=== PATIENT | female | born 1990 | race African-American/Black ===

== ENCOUNTER 2016-10-01 23:48 | Emergency (ER) | payer MEDICAID ==
[~2016-10-01] VITALS: Ht 170.2 cm; Wt 64.0 kg
[2016-10-02] MEDS ORDERED: SODIUM CHLORIDE 0.9% 1,000 ML IV ONE (01:28)
[2016-10-02] MEDS ORDERED: KETOROLAC 30MG/ML VIAL IV ONE (01:30)
[2016-10-02 01:40] LABS: BASOPHILS % 0.6 % (0.0-2.0); EOSINOPHILS % 0.3 % (0.0-5.0); HEMATOCRIT. 31.7 % (36.0-48.0); LYMPHOCYTES % 25.4 % (20.0-50.0); MEAN CORPUSCULAR HEMOGLOBIN 24.7 pg (28.0-32.0); MEAN CORPUSCULAR VOLUME 77.8 fL (81.0-99.0); MEAN PLATELET VOLUME 7.5 fl (7.4-10.4); MONOCYTES % 14.7 % (2.0-8.0); PLATELET 314 x1000/uL (130-400); RED BLOOD CELL COUNT 4.07 mill/uL (4.2-5.4)
[2016-10-02 01:46] LABS: CHLORIDE 104 mEq/L (98-107)
[2016-10-02 01:51] LABS: CARBON DIOXIDE 28 mEq/L (21-32)
[2016-10-02 02:40] VITALS: BP 103/64
== END 2016-10-02 03:47 | disposition home or self-care (01) ==
LOC: ER 10-02 00:40
DX: J20.9 Acute bronchitis, unspecified (principal); J45.909 Unspecified asthma, uncomplicated; R51 Headache
CPT/HCPCS: 36415; 70450; 71010; 80048; 85025; 93005; 96361; 96374; 99285; J1885; J7030; Z7610

== ENCOUNTER 2020-01-25 15:11 | Emergency (ER) | payer MEDICAID ==
[~2020-01-25] VITALS: Ht 170.2 cm; Wt 71.0 kg
[2020-01-25] MEDS ORDERED: METOCLOPRAMIDE HCL 10MG/2ML VIAL IV ONE (16:45)
[2020-01-25] MEDS ORDERED: DIPHENHYDRAMINE 50MG/ML VIAL IV ONE (16:45)
[2020-01-25] MEDS ORDERED: KETOROLAC 15MG/ML VIAL IV ONE (17:30)
[2020-01-25 18:11] VITALS: BP 116/62
[2020-01-25] MEDS ORDERED: HYDROCODONE/ACETAMINOPHEN 5/325MG TABLET PO ONE (18:15)
== END 2020-01-25 18:09 | disposition home or self-care (01) ==
LOC: ER 15:11
DX: R51 Headache (principal); R42 Dizziness and giddiness; J45.909 Unspecified asthma, uncomplicated
CPT/HCPCS: 81025; 96374; 96375; 99284; J1200; J1885; J2765

== ENCOUNTER 2021-12-30 13:38 | Emergency (ER) | payer MEDICAID ==
[~2021-12-30] VITALS: Ht 170.2 cm; Wt 65.0 kg
[2021-12-30 13:58] VITALS: BP 103/57
[2021-12-30] MEDS ORDERED: NAPR-681 MT (17:02)
== END 2021-12-30 17:30 | disposition home or self-care (01) ==
LOC: ER 13:38
DX: S63.591A Other specified sprain of right wrist, initial encounter (principal); J45.909 Unspecified asthma, uncomplicated; W01.0XXA Fall on same level from slipping, tripping and stumbling without subsequent striking against object, initial encounter; Y93.9 Activity, unspecified; Y92.9 Unspecified place or not applicable
CPT/HCPCS: 73110; 99283

== ENCOUNTER 2022-01-02 11:10 | Emergency (ER) | payer MEDICAID ==
[~2022-01-02] VITALS: Ht 167.6 cm; Wt 68.0 kg
[~2022-01-02 11:10] MED LIST: NAPR-681 MT
[2022-01-02 11:22] VITALS: BP 119/86
== END 2022-01-02 12:37 | disposition home or self-care (01) ==
LOC: ER 11:23
DX: M25.531 Pain in right wrist (principal); J45.909 Unspecified asthma, uncomplicated
CPT/HCPCS: 99281; A4565

== ENCOUNTER 2023-04-04 09:38 | Emergency (ER) | payer MEDICAID ==
[~2023-04-04] VITALS: Ht 167.6 cm; Wt 68.0 kg
[2023-04-04 09:55] VITALS: O2SAT 100
[2023-04-04] MEDS ORDERED: KETOROLAC 15MG/ML VIAL IV ONE (10:00)
[2023-04-04 10:24] LABS: BASOPHILS % 1.2 % (0.0-2.0); DIFFERENTIAL COMMENT 0; EOSINOPHILS % 2.7 % (0.0-5.0); HEMATOCRIT. 33.6 % (36.0-48.0); HEMOGLOBIN. 10.4 g/dL (12.0-16.0); LYMPHOCYTES % 35.6 % (20.0-50.0); MEAN CORPUSCULAR HEMOGLOBIN 24.8 pg (28.0-32.0); MEAN CORPUSCULAR VOLUME 80.1 fL (81.0-99.0); MEAN PLATELET VOLUME 7.7 fl (7.4-10.4); MONOCYTES % 7.2 % (2.0-8.0); NEUTROPHILS % 53.3 % (40.0-76.0); PLATELET 345 x1000/uL (130-400); RED CELL DISTRIBUTION WIDTH 17.6 % (11.6-14.6); WHITE BLOOD COUNT 3.5 x1000/uL (4.5-11.0)
[2023-04-04 10:30] LABS: INR 1.1; PROTHROMBIN TIME 11.7 sec (9.6-11.0)
[2023-04-04 10:42] LABS: ALANINE AMINOTRANSFERASE 8 IU/L (10-49); ALBUMIN 4.1 g/dL (3.2-4.8); ASPARTATE AMINOTRANSFERASE 19 IU/L (<34); BILIRUBIN TOTAL 0.5 mg/dL (0.1-1.0); CALCIUM 9.1 mg/dL (8.7-10.4); CARBON DIOXIDE 29 mEq/L (21-32); CHLORIDE 104 mEq/L (98-107); CREATININE 0.7 mg/dL (0.6-1.0); GLUCOSE 92 mg/dL (70-105); POTASSIUM 3.6 mEq/L (3.5-5.1); PROTEIN TOTAL 6.4 g/dL (6.0-8.3); SODIUM 139 mEq/L (136-145)
[2023-04-04 10:51] LABS: HCG SCREEN NEGATIVE
[2023-04-04 10:53] LABS: UREA NITROGEN BLOOD < 5 mg/dL (9-23)
[2023-04-04 15:51] LABS: CLARITY URINE CLEAR (CLEAR); COLOR URINE YELLOW (YELLOW); GLUCOSE URINE NEGATIVE (NEGATIVE); KETONES URINE NEGATIVE (NEGATIVE); OCCULT BLOOD URINE NEGATIVE (NEGATIVE); PROTEIN URINE NEGATIVE (NEGATIVE); SPECIFIC GRAVITY URINE 1.004 (1.005-1.030)
[2023-04-04 15:52] LABS: LEUKOCYTE ESTERASE URINE NEGATIVE (NEGATIVE); NITRITE URINE NEGATIVE (NEGATIVE); UROBILINOGEN URINE 0.2 E.U./dL (0.2-1.0)
[2023-04-04] MEDS ORDERED: KETOROLAC 15MG/ML VIAL IV NR (16:12)
[2023-04-04 16:57] VITALS: BP 124/78; PULSE 74; RESP 16; TEMP 98.2
== END 2023-04-04 16:58 | disposition home or self-care (01) ==
LOC: ER 10:56
DX: R10.9 Unspecified abdominal pain (principal); R11.2 Nausea with vomiting, unspecified; J45.909 Unspecified asthma, uncomplicated
CPT/HCPCS: 99285; 74176; 96374; 80053; 81003; 84703; 83690; 85025; 85610; 36415; J1885

== ENCOUNTER 2024-02-20 06:09 | Emergency (ER) | payer SELFPAY ==
[~2024-02-20] VITALS: Ht 170.2 cm; Wt 82.0 kg
[2024-02-20 06:20] VITALS: BP 115/72; PULSE 80; RESP 18; TEMP 98.8; O2SAT 98
[2024-02-20] MEDS ORDERED: ACETAMINOPHEN 325MG TABLET PO ONE (07:00)
[2024-02-20] MEDS ORDERED: ALBU18HF2 IH (07:13)
[2024-02-20] MEDS ORDERED: ACET-2708 MT (07:22)
== END 2024-02-20 07:42 | disposition home or self-care (01) ==
LOC: ER 06:27
DX: M54.50 Low back pain, unspecified (principal); J45.909 Unspecified asthma, uncomplicated
CPT/HCPCS: 99283